=== PATIENT | female | born 1960 | race African-American/Black ===

== ENCOUNTER 2017-03-07 09:10 | Emergency (ER) | payer OTHER, MEDICAID ==
[~2017-03-07] VITALS: Ht 175.3 cm; Wt 86.0 kg
[2017-03-07 09:16] VITALS: BP 151/91
[2017-03-07] MEDS ORDERED: KETOROLAC 60MG/2ML VIAL IM ONE (09:45)
== END 2017-03-07 11:21 | disposition home or self-care (01) ==
LOC: ER 09:11
DX: S63.635A Sprain of interphalangeal joint of left ring finger, initial encounter (principal); F32.9 Major depressive disorder, single episode, unspecified; I10 Essential (primary) hypertension; W01.198A Fall on same level from slipping, tripping and stumbling with subsequent striking against other object, initial encounter; Y93.89 Activity, other specified; Y92.89 Other specified places as the place of occurrence of the external cause; Y99.8 Other external cause status
CPT/HCPCS: 29130; 73130; 96372; 99284; J1885

== ENCOUNTER 2017-10-04 11:54 | Emergency (ER) | payer MEDICARE, MEDICAID ==
[~2017-10-04] VITALS: Ht 175.3 cm; Wt 80.0 kg
[2017-10-04 12:51] VITALS: BP 151/75
[2017-10-04 12:56] LABS: BASOPHILS % 1.3 % (0.0-2.0); EOSINOPHILS % 3.1 % (0.0-5.0); HEMATOCRIT. 36.8 % (36.0-48.0); HEMOGLOBIN. 12.1 g/dL (12.0-16.0); LYMPHOCYTES % 35.6 % (20.0-50.0); MEAN CORPUSCULAR HEMOGLOBIN 27.2 pg (28.0-32.0); MEAN CORPUSCULAR VOLUME 82.4 fL (81.0-99.0); MEAN PLATELET VOLUME 7.3 fl (7.4-10.4); MONOCYTES % 14.8 % (2.0-8.0); NEUTROPHILS % 45.2 % (40.0-76.0); PLATELET 417 x1000/uL (130-400); RED BLOOD CELL COUNT 4.47 mill/uL (4.2-5.4); RED CELL DISTRIBUTION WIDTH 15.7 % (11.6-14.6)
[2017-10-04 13:02] LABS: CHLORIDE 104 mEq/L (98-107)
[2017-10-04 13:05] LABS: CARBON DIOXIDE 32 mEq/L (21-32)
[2017-10-04 13:53] LABS: PROTHROMBIN TIME 10.5 sec (9.4-11.6)
== END 2017-10-04 14:40 | disposition home or self-care (01) ==
LOC: ER 12:38
DX: K64.4 Residual hemorrhoidal skin tags (principal); I10 Essential (primary) hypertension; R42 Dizziness and giddiness; R79.1 Abnormal coagulation profile
CPT/HCPCS: 36415; 80053; 85025; 85610; 99284

== ENCOUNTER 2017-12-27 13:42 | Emergency (ER) | payer MEDICAID, MEDICARE, OTHER ==
[~2017-12-27] VITALS: Ht 175.3 cm; Wt 73.0 kg
[2017-12-27] MEDS ORDERED: IBUPROFEN 400MG TABLET PO ONE (15:30)
[2017-12-27 15:39] LABS: BASOPHILS % 0.9 % (0.0-2.0); EOSINOPHILS % 3.6 % (0.0-5.0); HEMATOCRIT. 32.6 % (36.0-48.0); HEMOGLOBIN. 10.7 g/dL (12.0-16.0); LYMPHOCYTES % 23.6 % (20.0-50.0); MEAN CORPUSCULAR HEMOGLOBIN 27.2 pg (28.0-32.0); MEAN CORPUSCULAR VOLUME 82.9 fL (81.0-99.0); MEAN PLATELET VOLUME 7.7 fl (7.4-10.4); MONOCYTES % 8.8 % (2.0-8.0); NEUTROPHILS % 63.1 % (40.0-76.0); PLATELET 348 x1000/uL (130-400); RED BLOOD CELL COUNT 3.94 mill/uL (4.2-5.4); RED CELL DISTRIBUTION WIDTH 17.4 % (11.6-14.6)
[2017-12-27 15:41] LABS: CHLORIDE 109 mEq/L (98-107)
[2017-12-27 17:41] VITALS: BP 163/91
== END 2017-12-27 17:52 | disposition home or self-care (01) ==
LOC: ER 13:42
DX: R60.0 Localized edema (principal); M79.662 Pain in left lower leg; F32.9 Major depressive disorder, single episode, unspecified; I10 Essential (primary) hypertension
CPT/HCPCS: 36415; 73562; 80048; 85025; 85379; 93971; 99285

== ENCOUNTER 2018-12-04 13:27 | Emergency (ER) | payer OTHER, MEDICAID ==
[~2018-12-04] VITALS: Ht 172.7 cm; Wt 80.0 kg
[2018-12-04] MEDS ORDERED: AMOXICILLIN/POTASSIUM CLAVULANATE 875/125MG TAB PO ONE (14:45)
[2018-12-04] MEDS ORDERED: KETOROLAC 30MG/ML VIAL IM ONE (14:45)
[2018-12-04] MEDS ORDERED: TETANUS, DIPHTHERIA, PERTUSSIS VAC/PF 0.5ML (>7YR OLD) IM ONE (14:45)
[2018-12-04 15:06] VITALS: BP 127/89
[2018-12-04] MEDS ORDERED: LIDOCAINE HCL 1% 20ML VIAL (Pyxis) INJ INFIL ONE (16:00)
== END 2018-12-04 16:56 | disposition home or self-care (01) ==
LOC: ER 13:38
DX: S81.851A Open bite, right lower leg, initial encounter (principal); W54.0XXA Bitten by dog, initial encounter; Y93.89 Activity, other specified; Y92.89 Other specified places as the place of occurrence of the external cause; I10 Essential (primary) hypertension; Z23 Encounter for immunization
CPT/HCPCS: 12001; 73590; 90471; 90715; 96372; 99283; J1885; J3490

== ENCOUNTER 2018-12-06 12:23 | Emergency (ER) | payer OTHER, MEDICAID ==
[~2018-12-06] VITALS: Ht 175.3 cm; Wt 91.0 kg
[2018-12-06 15:44] VITALS: BP 152/78
== END 2018-12-06 19:30 | disposition home or self-care (01) ==
LOC: ER 19:21
DX: Z48.00 Encounter for change or removal of nonsurgical wound dressing (principal)
CPT/HCPCS: 99281

== ENCOUNTER 2018-12-17 10:22 | Emergency (ER) | payer OTHER, MEDICAID ==
[~2018-12-17] VITALS: Ht 175.3 cm; Wt 101.0 kg
[2018-12-17 14:52] VITALS: BP 145/66
== END 2018-12-17 15:12 | disposition home or self-care (01) ==
LOC: ER 10:46
DX: S81.811D Laceration without foreign body, right lower leg, subsequent encounter (principal); I10 Essential (primary) hypertension; J45.909 Unspecified asthma, uncomplicated; F41.9 Anxiety disorder, unspecified; W54.0XXD Bitten by dog, subsequent encounter
CPT/HCPCS: 99281

== ENCOUNTER 2022-10-17 00:42 | Emergency (ER) | payer OTHER, MEDICAID ==
[~2022-10-17] VITALS: Ht 170.2 cm; Wt 90.0 kg
[2022-10-17] MEDS ORDERED: HYDROCODONE/ACETAMINOPHEN 5/325MG TABLET PO ONE (01:00)
[2022-10-17 01:09] VITALS: BP 136/82
== END 2022-10-17 03:30 | disposition home or self-care (01) ==
LOC: ER 00:57
DX: M19.011 Primary osteoarthritis, right shoulder (principal); G89.29 Other chronic pain; Z91.81 History of falling; I11.0 Hypertensive heart disease with heart failure; I50.9 Heart failure, unspecified
CPT/HCPCS: 73030; 99283